=== PATIENT | female | born 1935 | race Caucasian/White ===

== ENCOUNTER 2016-04-14 07:06 | Emergency (ER) | payer MEDICARE, BC ==
[2016-04-14] MEDS ORDERED: HYDROCODONE/ACETAMINOPHEN 5-325 MG 6 TAB/DSPK PO PRN (07:36)
--- NOTE | 2016-04-14 07:37 | ER Document Report ---
ED Neck/Back Problem - General Mode of Arrival: Ambulatory Information source: Patient TRAVEL OUTSIDE OF THE [place] IN LAST 30 DAYS: No - HPI Patient complains to provider of: Pain, Upper back, Lower back Onset: Yesterday Associated symptoms: Other - see above - General Chief Complaint: Back Pain Stated Complaint: RIGHT SHOULDER PAIN Notes: 80 year old female with history of hypertension and osteoarthritis presents to the ED complaining of upper and lower right back pain that started yesterday and has gotten progressively worse since. Patient states that she is experiencing "severe pain" as if she has "pulled a muscle." Patient's pain does not radiate to the front. Patient's pain appears to be exacerbated with movement. Patient claims that 2 days ago she was peeling about 50 sweet potatoes and thinks that she might have strained her back secondary to this. Patient states that she is recovering from a virus, but denies any associated cough with the illness. Patient has used GasX because she thought the pain was presenting secondary to gas, but to no relief. Patient has also tried to use cold and hot pads, to no relief. (JUAN NOLASCO) - Related Data Allergies/Adverse Reactions: Sulfa (Sulfonamide Antibiotics) Allergy (Severe, Verified 07/01/14 13:03) Anaphylaxis Past Medical History - General Information source: Patient - Social History Smoking Status: Former Smoker Family History: Reviewed & Not Pertinent - Past Medical History Cardiac Medical History: Reports: Hx Coronary Artery Disease, Hx Heart Attack - 1983, Hx Hypertension - [facility] Pulmonary Medical History: Reports: Hx Bronchitis Musculoskeltal Medical History: Reports Hx Arthritis Past Surgical History: Reports: Hx Hysterectomy - Immunizations Hx Diphtheria, Pertussis, Tetanus Vaccination: No - Unsure Hx Pneumococcal Vaccination: 03/18/08 Review of Systems - Review of Systems Constitutional: See HPI, Recent illness - viral infection with no cough EENT: No symptoms reported Cardiovascular: No symptoms reported Respiratory: No symptoms reported Gastrointestinal: No symptoms reported Genitourinary: No symptoms reported Female Genitourinary: No symptoms reported Musculoskeletal: See HPI, Back pain - upper and lower right back pain Skin: No symptoms reported Hematologic/Lymphatic: No symptoms reported Neurological/Psychological: No symptoms reported -: Yes All other systems reviewed and negative Physical Exam - General General appearance: Alert In distress: None - HEENT Head: Normocephalic, Atraumatic Eyes: Normal Extraocular movements intact: Yes Pupils: PERRL - Respiratory Respiratory status: No respiratory distress - Cardiovascular Rhythm: Regular - Abdominal Inspection: Normal - Back Back: Tender - Tender to palpate the right inferior scapula, right posterior lateral ribs, and muscles of the right flank. No skin blisters or sensitivity. Area of tenderness covers 3-4 dermatomes., Other - Lidocaine patches present on the right back.. No: Normal - Extremities General upper extremity: Normal inspection, Normal ROM General lower extremity: Normal inspection, Normal ROM - Neurological Neuro grossly intact: Yes - Psychological Associated symptoms: Normal affect, Normal mood - Skin Skin Temperature: Warm Skin Moisture: Dry Skin Color: Normal Discharge - Discharge Clinical Impression: Mid back pain on right side, Muscle strain Additional Instructions: Overuse Syndrome: Overuse syndrome or repetitive-motion syndrome is inflammation caused by repeated activity. Many daily activities cause minor, microscopic injury to muscles, tendons, and ligaments. With adequate rest, the tissues repair themselves. But sometimes a repetitive movement or new activity is too much for the tissue to tolerate, and inflammation results. Examples of overuse syndrome are tendonitis, bursitis, muscle inflammation, and joint capsulitis. Rest. Stop or decrease the activity that created the problem. You may need a sling or splint. For the first couple of days after symptoms begin, ice packs can be helpful. When the symptoms start improving, you can switch to hot packs followed by stretching and motion of the painful area. Antiinflammatory medicine such as ibuprofen can help. Call the doctor or return if there is fever, increasing pain, spreading redness, numbness, weakness, or other significant change. //////////////////////////////////////////////////////////////////////////////// //////////////////////////////////////////////////////////////////////////////// ////////////// You've probably suffered an overuse strain of your right scapular, rib and flank muscles when you peeled all those potatoes. Take the pain medication as prescribed. Rest, limit using her right arm. Follow-up with your doctor Saturday if not improving. Return immediately if you notice any blisters developing on the skin over the painful area, as this may mean this is early shingles. RETURN TO THE EMERGENCY ROOM IF ANY NEW OR WORSENING SYMPTOMS. Prescriptions: Hydrocodone/Acetaminophen [Hydrocodon-Acetaminophen 5-325] 1 each PO Q4 PRN #15 tablet PRN Reason: For Pain Referrals: STEVE DE LA PAZ MD [EMERITUS] - Follow up as needed Scribe Attestation: 04/14/16 07:43 I personally performed the services described in the documentation, reviewed and edited the documentation which was dictated to the scribe in my presence, and it accurately records my words and actions. (CARLA NORTON) Scribe Documentation - Scribe Written by Gudelia:: Gudelia Carreon, 04/14/2016 07:56 acting as scribe for :: Lisa
[2016-04-14 07:53] VITALS: BP 157/74
== END 2016-04-14 07:55 | disposition home or self-care (01) ==
LOC: ER 07:06
DX: T14.8 Other injury of unspecified body region (principal); X58.XXXA Exposure to other specified factors, initial encounter; M54.89 Other dorsalgia; M54.5 Low back pain; Z87.892 Personal history of anaphylaxis; Z88.2 Allergy status to sulfonamides; I10 Essential (primary) hypertension; Z87.891 Personal history of nicotine dependence; I25.10 Atherosclerotic heart disease of native coronary artery without angina pectoris; I25.2 Old myocardial infarction
CPT/HCPCS: 99283; A9270

== ENCOUNTER → 2016-08-16 | Outpatient (CLI) | payer MEDICARE, BC ==
[2016-08-16 16:29] LABS: APPEARANCE,URINE SLIGHTLY-CLOUDY; BILIRUBIN,URINE NEGATIVE (NEGATIVE); GLUCOSE, URINE NEGATIVE (NEGATIVE); KETONES,URINE NEGATIVE (NEGATIVE); LEUKOCYTE ESTERASE,URINE MODERATE (NEGATIVE); NITRITE,URINE NEGATIVE (NEGATIVE); PROTEIN,URINE NEGATIVE (NEGATIVE); URINE SPECIFIC GRAVITY 1.027; UROBILINOGEN,URINE NEGATIVE mg/dL (<2.0)
[2016-08-16 16:33] LABS: ABSOLUTE BASOPHILS # (AUTO) 0.1 10^3/uL (0.0-0.2); ABSOLUTE EOSINOPHILS # (AUTO) 0.1 10^3/uL (0.0-0.6); ABSOLUTE LYMPHOCYTES (AUTO) 4.1 10^3/uL (0.5-4.7); ABSOLUTE MONOCYTES (AUTO) 0.9 10^3/uL (0.1-1.4); ABSOLUTE NEUT (AUTO) 5.2 10^3/uL (1.7-8.2); BASOPHILS % (AUTO) 0.6 % (0-2); EOSINOPHILS % (AUTO) 0.6 % (0-6); HEMATOCRIT 38.4 % (36.0-47.0); HEMOGLOBIN 12.6 g/dL (12.0-15.5); HGB HCT DIFFERENCE -0.6; LYMPHOCYTES % (AUTO) 39.9 % (13-45); MEAN CORPUSCULAR HEMOGLOBIN 31.8 pg (27.0-33.4); MEAN CORPUSCULAR VOLUME 97 fl (80-97); MONOCYTES % (AUTO) 8.5 % (3-13); RED BLOOD COUNT 3.97 10^6/uL (3.72-5.28); RED CELL DISTRIBUTION WIDTH 12.5 % (11.5-14.0); SEGMENTED NEUTROPHILS % (AUTO) 50.4 % (42-78); WHITE BLOOD COUNT 10.3 10^3/uL (4.0-10.5)
== END ==
LOC: OD 15:37
PROVIDERS: ATTEND Specialist
DX: R10.9 Unspecified abdominal pain (principal); K57.30 Diverticulosis of large intestine without perforation or abscess without bleeding
CPT/HCPCS: 36415; 81001; 85025

== ENCOUNTER → 2016-11-12 | Outpatient (CLI) | payer MEDICARE, BC ==
[2016-11-12 07:51] LABS: ABSOLUTE BASOPHILS # (AUTO) 0.1 10^3/uL (0.0-0.2); ABSOLUTE EOSINOPHILS # (AUTO) 0.1 10^3/uL (0.0-0.6); ABSOLUTE LYMPHOCYTES (AUTO) 4.8 10^3/uL (0.5-4.7); ABSOLUTE MONOCYTES (AUTO) 0.8 10^3/uL (0.1-1.4); ABSOLUTE NEUT (AUTO) 5.5 10^3/uL (1.7-8.2); BASOPHILS % (AUTO) 0.8 % (0-2); EOSINOPHILS % (AUTO) 1.1 % (0-6); HEMATOCRIT 39.3 % (36.0-47.0); HEMOGLOBIN 13.6 g/dL (12.0-15.5); HGB HCT DIFFERENCE 1.5; LYMPHOCYTES % (AUTO) 42.7 % (13-45); MEAN CORPUSCULAR HEMOGLOBIN 32.6 pg (27.0-33.4); MEAN CORPUSCULAR HGB CONC 34.5 g/dL (32.0-36.0); MEAN CORPUSCULAR VOLUME 95 fl (80-97); MONOCYTES % (AUTO) 7.2 % (3-13); RED BLOOD COUNT 4.16 10^6/uL (3.72-5.28); RED CELL DISTRIBUTION WIDTH 12.1 % (11.5-14.0); SEGMENTED NEUTROPHILS % (AUTO) 48.2 % (42-78); WHITE BLOOD COUNT 11.4 10^3/uL (4.0-10.5)
[2016-11-12 08:06] LABS: ALANINE AMINOTRANSFERASE 53 U/L (9-52); ALBUMIN 4.6 g/dL (3.5-5.0); ALKALINE PHOSPHATASE 122 U/L (38-126); ANION GAP 13 (5-19); ASPARTATE AMINO TRANSFERASE 50 U/L (14-36); BILIRUBIN,DIRECT 0.5 mg/dL (0.0-0.4); BILIRUBIN,TOTAL 0.6 mg/dL (0.2-1.3); BLOOD UREA NITROGEN 24 mg/dL (7-20); CARBON DIOXIDE 28 mmol/L (22-30); CHLORIDE 98 mmol/L (98-107); CHOLESTEROL 177.93 mg/dL (0-200); CREATININE RESULT 1.12 mg/dL (0.52-1.25); Direct HDL 47 mg/dL (>40); GLUCOSE 117 mg/dL (75-110); POTASSIUM 4.7 mmol/L (3.6-5.0); SODIUM 138.7 mmol/L (137-145); TOTAL PROTEIN 7.7 g/dL (6.3-8.2); TRIGLYCERIDES 128 mg/dL (<150)
[2016-11-12 08:17] LABS: DIRECT LDL 97 mg/dL (<100)
[2016-11-12 08:36] LABS: THYROID STIMULATING HORMONE 7.78 uIU/mL (0.47-4.68)
== END ==
LOC: LAB 07:17
PROVIDERS: ATTEND Internal Medicine
DX: I10 Essential (primary) hypertension (principal); Z79.899 Other long term (current) drug therapy; E78.00 Pure hypercholesterolemia, unspecified; E03.9 Hypothyroidism, unspecified
CPT/HCPCS: 36415; 80053; 80061; 84439; 84443; 85025

== ENCOUNTER 2016-12-03 21:20 | Emergency (ER) | payer MEDICARE, BC ==
[2016-12-03] MEDS ORDERED: ASPIRIN 81 MG TABLET, CHEWABLE PO ONE (22:40)
[2016-12-03] MEDS ORDERED: ONDANSETRON 4 MG TAB.RAPDIS PO ONE (22:54)
[2016-12-03] MEDS ORDERED: OXYCODONE-ACETAMINOPHEN 5-325 MG TABLET PO ONE (22:54)
--- NOTE | 2016-12-03 22:58 | ER Document Report ---
ED Medical Screen (RME) - General Chief Complaint: Neck and Upper Back Pain Stated Complaint: UPPER BACK PAIN Time Seen by Provider: 12/03/16 22:46 Notes: 81-year-old female, chief complaint of pain in her mid to upper back radiating up towards her neck, she states she has had this several times before, worse with movement, pain is sharp, symptoms started yesterday but returned today and she could not get them under control today. She states she believes this is muscular. She denies falling, denies any obvious injuries. She denies shortness of breath, chest pain, dizziness. She does have a history of [place] but does not take a blood thinner. She also has a history of hypertension. TRAVEL OUTSIDE OF THE [place] IN LAST 30 DAYS: No - Related Data Allergies/Adverse Reactions: Sulfa (Sulfonamide Antibiotics) Allergy (Severe, Verified 07/01/14 13:03) Anaphylaxis Past Medical History - Past Medical History Cardiac Medical History: Reports: Hx Coronary Artery Disease, Hx Heart Attack - 1983, Hx Hypertension - [facility] Pulmonary Medical History: Reports: Hx Bronchitis Denies: Hx Asthma, Hx COPD, Hx Pneumonia Neurological Medical History: Denies: Hx Cerebrovascular Accident, Hx Seizures Renal/ Medical History: Denies: Hx Peritoneal Dialysis GI Medical History: Denies: Hx Hepatitis, Hx Hiatal Hernia, Hx Ulcer Musculoskeltal Medical History: Reports Hx Arthritis Infectious Medical History: Denies: Hx Hepatitis Past Surgical History: Reports: Hx Hysterectomy. Denies: Hx Mastectomy, Hx Open Heart Surgery, Hx Pacemaker - Immunizations Hx Diphtheria, Pertussis, Tetanus Vaccination: No - Unsure Physical Exam - Vital signs Vitals: Temp Pulse Resp BP Pulse Ox 98.0 F 67 18 191/61 H 96 12/03/16 21:53 12/03/16 21:53 12/03/16 21:53 12/03/16 21:53 12/03/16 21:53 - Back Back: Tender - Patient with significant tenderness mainly along the right paraspinal muscles of the thoracic region, she has a couple of patches in the lower thoracic region, full range of motion of all extremities, normal distal neurovascular exam Course - Re-evaluation Re-evalutation: Patient intermittently does appear to be in a lot of pain, it is worse with movement, and it does appear to be muscular on palpation of the mid to upper back, however because of patient's age, risk factors, workup being performed. Because of the onset of yesterday, intermittent symptoms, and reproducible pain on back exam it seems less likely that this is an acute dissection. Patient asking for something for pain and agrees to workup at this time. - Vital Signs Vital signs: Temp Pulse Resp BP Pulse Ox 98.0 F 67 18 191/61 H 96 12/03/16 21:53 12/03/16 21:53 12/03/16 21:53 12/03/16 21:53 12/03/16 21:53
[2016-12-03 23:28] LABS: ABSOLUTE BASOPHILS # (AUTO) 0.2 10^3/uL (0.0-0.2); ABSOLUTE EOSINOPHILS # (AUTO) 0.2 10^3/uL (0.0-0.6); ABSOLUTE LYMPHOCYTES (AUTO) 4.7 10^3/uL (0.5-4.7); ABSOLUTE NEUT (AUTO) 5.6 10^3/uL (1.7-8.2); BASOPHILS % (AUTO) 1.4 % (0-2); EOSINOPHILS % (AUTO) 1.6 % (0-6); HEMATOCRIT 37.7 % (36.0-47.0); HGB HCT DIFFERENCE 1.3; LYMPHOCYTES % (AUTO) 40.5 % (13-45); MEAN CORPUSCULAR HEMOGLOBIN 32.4 pg (27.0-33.4); MEAN CORPUSCULAR HGB CONC 34.5 g/dL (32.0-36.0); MEAN CORPUSCULAR VOLUME 94 fl (80-97); MONOCYTES % (AUTO) 8.3 % (3-13); RED CELL DISTRIBUTION WIDTH 12.6 % (11.5-14.0); SEGMENTED NEUTROPHILS % (AUTO) 48.2 % (42-78); WHITE BLOOD COUNT 11.7 10^3/uL (4.0-10.5)
[2016-12-03 23:32] LABS: ALANINE AMINOTRANSFERASE 56 U/L (9-52); ALBUMIN 4.5 g/dL (3.5-5.0); ALKALINE PHOSPHATASE 133 U/L (38-126); ANION GAP 13 (5-19); ASPARTATE AMINO TRANSFERASE 62 U/L (14-36); BILIRUBIN,DIRECT 0.4 mg/dL (0.0-0.4); BILIRUBIN,TOTAL 0.4 mg/dL (0.2-1.3); BLOOD UREA NITROGEN 21 mg/dL (7-20); CALCIUM 9.8 mg/dL (8.4-10.2); CARBON DIOXIDE 25 mmol/L (22-30); CHLORIDE 99 mmol/L (98-107); CREATINE KINASE 80 U/L (30-135); CREATININE RESULT 1.19 mg/dL (0.52-1.25); GLUCOSE 113 mg/dL (75-110); POTASSIUM 4.1 mmol/L (3.6-5.0); SODIUM 137.4 mmol/L (137-145); TOTAL PROTEIN 7.8 g/dL (6.3-8.2)
--- NOTE | 2016-12-03 23:32 | RADIOLOGY REPORT (SQ) ---
EXAM DESCRIPTION: CHEST SINGLE VIEW COMPLETED DATE/TIME: 12/03/2016 11:18 pm REASON FOR STUDY: severe mid back pain COMPARISON: None. EXAM PARAMETERS: NUMBER OF VIEWS: One view. TECHNIQUE: Single frontal radiographic view of the chest acquired. RADIATION DOSE: NA LIMITATIONS: None. FINDINGS: LUNGS AND PLEURA: No opacities, masses or pneumothorax. No pleural effusion. MEDIASTINUM AND HILAR STRUCTURES: No masses. Contour normal. HEART AND VASCULAR STRUCTURES: Heart normal in size. Normal vasculature. BONES: No acute findings. HARDWARE: None in the chest. OTHER: Some elevation of the right hemidiaphragm is seen. IMPRESSION: NO ACUTE RADIOGRAPHIC FINDING IN THE CHEST. TECHNICAL DOCUMENTATION: JOB ID: [id number]
[2016-12-03 23:44] LABS: CREATINE KINASE MB 1.24 ng/mL (<4.55)
[2016-12-03 23:48] LABS: TROPONIN I < 0.012 ng/mL
[2016-12-04] MEDS ORDERED: OXYCODONE-ACETAMINOPHEN 5-325 MG TABLET PO ONE (00:10)
[2016-12-04] MEDS ORDERED: AMLODIPINE BESYLATE 5 MG TABLET PO ONE (00:36)
--- NOTE | 2016-12-04 02:30 | RADIOLOGY REPORT (SQ) ---
EXAM DESCRIPTION: CTA ABDOMEN COMPLETED DATE/TIME: 12/04/2016 1:56 am REASON FOR STUDY: back pain and hypertension. eval aorta for disection or aneurysm COMPARISON: None. TECHNIQUE: CT scan of the abdominal aorta extending to the iliac bifurcation performed with and with out intravenous contrast using helical scanning technique with dynamic intravenous contrast injection . Images reviewed with lung, soft tissue, and bone windows. Reconstructed coronal and sagittal MPR im ages reviewed. All images stored on PACS. Advanced 3D imaging as volume rendering, MIPS, SSD performed? yes All CT scanners at this facility use dose modulation, iterative reconstruction, and/or weight based d osing when appropriate to reduce radiation dose to as low as reasonably achievable (ALARA). [facility]: Dose Right [facility]: CareDose [facility]: Dose Right [facility]: Teradose 4D [facility]: [employer] CONTRAST TYPE AND DOSE: contrast/concentration: Isovue 370.00 mg/ml; Total Contrast Delivered: 100.0 ml; Total Saline Delivered: 45.0 ml RENAL FUNCTION: Creatinine 1.2 LIMITATIONS: None. FINDINGS: NON-CONTRASTED IMAGING: No significant renal or bladder calcifications. No other significa nt organ calcifications. POST-CONTRAST IMAGING: AORTA AND VESSELS: No aneurysm. No dissection. Renal arteries, SMA, celiac without stenosis. LUNG BASES: No significant findings. No nodules or infiltrates. LIVER: Normal size. No masses or dilated ducts. SPLEEN: Normal size. No focal lesions. PANCREAS: No masses. No significant calcifications. No adjacent inflammation or peripancreatic fluid collections. Pancreatic duct not dilated. GALLBLADDER: Surgically absent. ADRENAL GLANDS: No significant masses or asymmetry. RIGHT KIDNEY AND URETER: Severe atrophy. LEFT KIDNEY AND URETER: Severe atrophy. RETROPERITONEUM: No retroperitoneal adenopathy, hemorrhage or masses. BOWEL AND PERITONEAL CAVITY: No masses or inflammatory changes. No free fluid or peritoneal masses. Small ends extensive diverticulosis. APPENDIX: Normal. ABDOMINAL WALL: No masses. No hernias. BONY STRUCTURES: Moderate L5-S1 vacuum disc desiccation. 3-D IMAGING: Confirms the above findings. OTHER: No other significant finding. IMPRESSION: NO ABDOMINAL AORTIC ANEURYSM, DISSECTION OR SIGNIFICANT STENOSIS. NO SIGNIFICANT FINDING S IN THE ABDOMEN. TECHNICAL DOCUMENTATION: JOB ID: [id number] Quality ID # [id number]: Final reports with documentation of one or more dose reduction techniques (e.g., Au tomated exposure control, adjustment of the mA and/or kV according to patient size, use of iterative reconstruction technique) 2010 [employer]- All Rights Reserved
--- NOTE | 2016-12-04 02:33 | RADIOLOGY REPORT (SQ) ---
EXAM DESCRIPTION: CTA CHEST COMPLETED DATE/TIME: 12/04/2016 1:56 am REASON FOR STUDY: back pain and hypertension. eval aorta for disection or aneurysm COMPARISON: None. TECHNIQUE: CT scan of the chest performed using helical scanning technique with dynamic intravenous contrast injection. Images reviewed with lung, soft tissue and bone windows. Reconstructed coronal and sagittal MPR images reviewed. Additional 3 dimensional post-processing performed to develop Maximal Intensity Projection images (PR P). All images stored on PACS. All CT scanners at this facility use dose modulation, iterative reconstruction, and/or weight based d osing when appropriate to reduce radiation dose to as low as reasonably achievable (ALARA). [facility]: Dose Right [facility]: CareDose [facility]: Dose Right [facility]: Teradose 4D [facility]: [email or web address] CONTRAST TYPE AND DOSE: Contrast bolus optimized for the pulmonary arteries. Not diagnostic for the aorta. RENAL FUNCTION: The creatinine 1.2 RADIATION DOSE: . LIMITATIONS: None. FINDINGS: LUNGS AND PLEURA: 0.5 cm likely benign right middle lobar pulmonary nodule. Mild smooth p leural thickening. AORTA AND GREAT VESSELS: No aneurysm. Contrast bolus not optimized for the aorta. HEART: No pericardial effusion. No significant coronary artery calcifications. PULMONARY ARTERIES: No emboli visualized in the main pulmonary arteries or the segmental branches. HILAR AND MEDIASTINAL STRUCTURES: No identified masses or abnormal nodes. HARDWARE: None in the chest. UPPER ABDOMEN: No significant findings. Limited exam. THYROID AND OTHER SOFT TISSUES: No masses. No adenopathy. BONES: No acute or significant finding. 3D MIPS: Confirm above findings. OTHER: No other significant finding. IMPRESSION: No acute cardiopulmonary findings. . NO PULMONARY EMBOLI. COMMENT: FLEISCHNER CRITERIA FOR FOLLOW-UP OF PULMONARY NODULES Incidentally detected new nodules in persons 35 or older. HIGH RISK: History of smoking or other known risk factors. <6mm single solid nodule: LOW RISK: no routine followup. HIGH RISK: optional CT 12 mo. Quality ID # [id number]: Final reports with documentation of one or more dose reduction techniques (e.g., Au tomated exposure control, adjustment of the mA and/or kV according to patient size, use of iterative reconstruction technique) TECHNICAL DOCUMENTATION: JOB ID: [id number] [employer]- All Rights Reserved
--- NOTE | 2016-12-04 02:35 | RADIOLOGY REPORT (SQ) ---
EXAM DESCRIPTION: CTA PELVIS COMPLETED DATE/TIME: 12/04/2016 1:56 am REASON FOR STUDY: back pain and hypertension. eval aorta for disection or aneurysm COMPARISON: None. TECHNIQUE: CT scan of the abdominal aorta extending to the iliac bifurcation performed with and with out intravenous contrast using helical scanning technique with dynamic intravenous contrast injection . Images reviewed with lung, soft tissue, and bone windows. Reconstructed coronal and sagittal MPR im ages reviewed. All images stored on PACS. Advanced 3D imaging as volume rendering, MIPS, SSD performed? yes All CT scanners at this facility use dose modulation, iterative reconstruction, and/or weight based d osing when appropriate to reduce radiation dose to as low as reasonably achievable (ALARA). [facility]: Dose Right [facility]: CareDose [facility]: Dose Right [facility]: Teradose 4D [facility]: [employer] CONTRAST TYPE AND DOSE: 100 cc Isovue 370 RENAL FUNCTION: Creatinine 1.2 LIMITATIONS: None. FINDINGS: NON-CONTRASTED IMAGING: No significant renal or bladder calcifications. No other significa nt organ calcifications. POST-CONTRAST IMAGING: AORTA AND VESSELS: No aneurysm. No dissection. Renal arteries, SMA, celiac without stenosis. LUNG BASES: No significant findings. No nodules or infiltrates. LIVER: Normal size. No masses or dilated ducts. SPLEEN: Normal size. No focal lesions. PANCREAS: No masses. No significant calcifications. No adjacent inflammation or peripancreatic fluid collections. Pancreatic duct not dilated. GALLBLADDER: Surgically absent. ADRENAL GLANDS: No significant masses or asymmetry. RIGHT KIDNEY AND URETER: No mass, calculi or urinary tract obstruction. LEFT KIDNEY AND URETER: No mass, calculi or urinary tract obstruction. Duplicated collecting system. RETROPERITONEUM: No retroperitoneal adenopathy, hemorrhage or masses. BOWEL AND PERITONEAL CAVITY: No masses or inflammatory changes. No free fluid or peritoneal masses. Small diverticulosis. APPENDIX: No evidence of appendicitis. ABDOMINAL WALL: No masses. No hernias. BONY STRUCTURES: No significant or acute findings. 3-D IMAGING: Confirms the above findings. OTHER: No other significant finding. IMPRESSION: No acute findings. NO ABDOMINAL AORTIC ANEURYSM, DISSECTION OR SIGNIFICANT STENOSIS. TECHNICAL DOCUMENTATION: JOB ID: [id number] Quality ID # [id number]: Final reports with documentation of one or more dose reduction techniques (e.g., Au tomated exposure control, adjustment of the mA and/or kV according to patient size, use of iterative reconstruction technique) 2010 [employer]- All Rights Reserved
--- NOTE | 2016-12-04 03:17 | ER Document Report ---
ED General - General Chief Complaint: Neck and Upper Back Pain Stated Complaint: UPPER BACK PAIN Time Seen by Provider: 12/03/16 22:46 Mode of Arrival: Ambulatory Information source: Patient Notes: This is an 81-year-old female with a history of coronary artery disease, GERD, history of elevated LFTs, presents to the emergency room with back pain and spasm. Patient denies any chest pain, shortness of breath. Patient denies any fever, chills, nausea vomiting. TRAVEL OUTSIDE OF THE [place] IN LAST 30 DAYS: No - HPI Onset: Just prior to arrival - Chest Onset/Duration: Gradual Quality of pain: No pain Severity: None Pain Level: 2 Associated symptoms: denies: Chest pain, Fever, Shortness of breath Exacerbated by: Movement Relieved by: Remaining still Similar symptoms previously: Yes Recently seen / treated by doctor: No - Related Data Allergies/Adverse Reactions: Sulfa (Sulfonamide Antibiotics) Allergy (Severe, Verified 12/04/16 01:05) Anaphylaxis Past Medical History - General Information source: Patient - Social History Smoking Status: Never Smoker Cigarette use (# per day): No Chew tobacco use (# tins/day): No Frequency of alcohol use: None Drug Abuse: None Lives with: Family Family History: Reviewed & Not Pertinent Patient has suicidal ideation: No Patient has homicidal ideation: No - Past Medical History Cardiac Medical History: Reports: Hx Coronary Artery Disease, Hx Heart Attack - x2, Hx Hypertension - [facility] Pulmonary Medical History: Reports: Hx Bronchitis Denies: Hx Asthma, Hx COPD, Hx Pneumonia Neurological Medical History: Denies: Hx Cerebrovascular Accident, Hx Seizures Renal/ Medical History: Denies: Hx Peritoneal Dialysis GI Medical History: Denies: Hx Hepatitis, Hx Hiatal Hernia, Hx Ulcer Musculoskeltal Medical History: Reports Hx Arthritis Infectious Medical History: Denies: Hx Hepatitis Past Surgical History: Reports: Hx Appendectomy, Hx Cholecystectomy, Hx Hysterectomy, Hx Orthopedic Surgery - Back, Hx Tonsillectomy. Denies: Hx Mastectomy, Hx Open Heart Surgery, Hx Pacemaker - Immunizations Hx Diphtheria, Pertussis, Tetanus Vaccination: Yes Hx Pneumococcal Vaccination: 03/18/08 Review of Systems - Review of Systems Constitutional: denies: Chills, Fever EENT: No symptoms reported Cardiovascular: No symptoms reported Respiratory: No symptoms reported Gastrointestinal: No symptoms reported Genitourinary: No symptoms reported Female Genitourinary: No symptoms reported Musculoskeletal: See HPI Skin: No symptoms reported Hematologic/Lymphatic: No symptoms reported Neurological/Psychological: No symptoms reported Physical Exam - Vital signs Vitals: Temp Pulse Resp BP Pulse Ox 98.0 F 67 18 191/61 H 96 12/03/16 21:53 12/03/16 21:53 12/03/16 21:53 12/03/16 21:53 12/03/16 21:53 Notes: Physical exam: GENERAL: This is 81-year-old female, alert and oriented 3, no acute distress HEAD: Atraumatic, normocephalic. EYES: Pupils equal round and reactive to light, extraocular movements intact, sclera anicteric, conjunctiva are normal. ENT: TMs normal, nares patent, oropharynx clear without exudates. Moist mucous membranes. NECK: Normal range of motion, supple without obvious mass or JVD. LUNGS: Breath sounds clear to auscultation bilaterally and equal. No wheezes rales or rhonchi. HEART: Regular rate and rhythm without murmurs, rubs or gallops. ABDOMEN: Soft, normoactive bowel sounds. No tenderness to palpation. No guarding, no rebound. No masses appreciated. EXTREMITIES: 2+ pulses and equal in all extremities, normal range of motion, no pitting or edema. No clubbing or cyanosis. NEUROLOGICAL: Cranial nerves II through XII grossly intact. Normal speech, moving all extremities. PSYCH: Normal mood, normal affect. SKIN: Warm, Dry, normal turgor, no rashes or lesions noted. Course - Re-evaluation Re-evalutation: 12/04/16 03:35 Note: Patient's blood pressure is 138/63. Patient states she feels much better at the Percocet. She never had chest pain or shortness of breath. Her symptoms were back pain worse with movement. Given her elevated blood pressure on arrival, we did do a CT of the aorta which showed no evidence of aneurysm or dissection. I have had a long conversation with the patient. The plan will be for her to go home with a short course of pain medicines. 12/04/16 03:37 Note: Patient does have a history of elevated LFTs. They are mildly elevated to 9 which is consistent with what she is told me. She has had no abdominal tenderness or complaints. - Vital Signs Vital signs: Temp Pulse Resp BP Pulse Ox 98.0 F 67 20 143/66 H 97 12/04/16 03:55 12/03/16 21:53 12/04/16 03:55 12/04/16 03:55 12/04/16 03:55 - Laboratory Result Diagrams: 12/03/16 23:00 12/03/16 23:00 Laboratory results interpreted by me: 12/03/16 12/03/16 23:00 23:00 WBC 11.7 H BUN 21 H Est GFR ( Amer) 53 L Est GFR (Non-Af Amer) 44 L Glucose 113 H AST 62 H ALT 56 H Alkaline Phosphatase 133 H - Diagnostic Test Radiology reviewed: Image reviewed, Reports reviewed - CT of the chest abdomen and pelvis showed no aortic dissection or aneurysm. - EKG Interpretation by Me Rate: Normal Rhythm: NSR - Ventricular rate 57, no acute ST-T wave changes Discharge - Discharge Clinical Impression: acute Back pain Condition: Stable Disposition: HOME, SELF-CARE Additional Instructions: Thank you for choosing [facility] for your care. The examination and treatment you have received in the Emergency Department today has been rendered on an emergency basis only and is not intended to be a substitute for complete medical care. You should contact your follow-up physician as it is important that he or she examine you for any new or remaining problems. If given a copy of any lab tests or radiology reports, please bring them with you when you see your physician. If your problem worsens or new symptoms appear and you are unable to arrange prompt follow-up care, return to the Emergency Department. Specific signs to look out for: Worsening pain, chest pain, shortness of breath Any other instructions: Take the pain medicine as needed. Follow-up with Dr. Daniels: Bring a copy of today's lab work as well as CT reports with you. The pain medicine you're taking prescribed as a narcotic. There are several important things you should know about this medicine: 1. This medicine contains Tylenol: It is important that you do not take Tylenol (or acetaminophen) while on this medicine. Tylenol is metabolized by the liver and taking too much Tylenol (acetaminophen) can lay to liver damage and even liver failure. 2. Taking narcotics for too long can lead to physical and mental dependence. Take this medicine only if really needed and in the lowest quantity to achieve pain relief. 3. Do not drink alcohol while on this medicine. Alcohol interacts with narcotics and the combination can be dangerous. 4. Do not drive or operate machinery while on this medicine. 5. Narcotics do cause constipation, so drink plenty of fluids and daily stool softeners. Prescriptions: Oxycodone HCl/Acetaminophen [Percocet 5-325 mg Tablet] 1 - 2 tab PO ASDIR PRN # 25 tablet PRN Reason: Referrals: STEVE DE LA PAZ MD [Primary Care Provider] - Follow up as needed
[2016-12-04 04:00] VITALS: BP 143/66
--- NOTE | 2016-12-04 07:51 | EKG REPORT ---
SEVERITY:- ABNORMAL ECG - SINUS RHYTHM ABNRM R PROG, CONSIDER ASMI OR LEAD PLACEMENT : Confirmed by: John Angulo MD 04-Dec-2016 07:50:49
== END 2016-12-04 04:00 | disposition home or self-care (01) ==
LOC: ER 21:20
DX: M54.89 Other dorsalgia (principal); R25.2 Cramp and spasm; R79.89 Other specified abnormal findings of blood chemistry; I10 Essential (primary) hypertension; I25.10 Atherosclerotic heart disease of native coronary artery without angina pectoris; I25.2 Old myocardial infarction; Z87.892 Personal history of anaphylaxis; Z88.2 Allergy status to sulfonamides
CPT/HCPCS: 93005; 99284; 36415; 82553; 82550; 85025; 80053; 84484; 71010; 71275; 74175; 72191; 93010; A9270 ×3; S0119

== ENCOUNTER → 2017-05-02 | Outpatient (CLI) | payer MEDICARE, BC ==
[2017-05-02 13:29] LABS: HEMATOCRIT 40.1 % (36.0-47.0); HEMOGLOBIN 13.8 g/dL (12.0-15.5); MEAN CORPUSCULAR HEMOGLOBIN 32.2 pg (27.0-33.4); MEAN CORPUSCULAR HGB CONC 34.5 g/dL (32.0-36.0); MEAN CORPUSCULAR VOLUME 93 fl (80-97); PLATELET COUNT 278 10^3/uL (150-450); RED BLOOD COUNT 4.29 10^6/uL (3.72-5.28); RED CELL DISTRIBUTION WIDTH 12.9 % (11.5-14.0); WHITE BLOOD COUNT 9.1 10^3/uL (4.0-10.5)
[2017-05-02 14:05] LABS: FREE T4 (FREE THYROXINE) 0.76 ng/dL (0.78-2.19)
[2017-05-02 14:19] LABS: THYROID STIMULATING HORMONE 0.08 uIU/mL (0.47-4.68)
== END ==
LOC: OD 12:34
PROVIDERS: ATTEND Internal Medicine
DX: E03.9 Hypothyroidism, unspecified (principal); R73.9 Hyperglycemia, unspecified; R21 Rash and other nonspecific skin eruption
CPT/HCPCS: 36415; 82947; 84439; 84443; 85027

== ENCOUNTER → 2017-12-09 | Outpatient (CLI) | payer MEDICARE, BC ==
[2017-12-09 10:34] LABS: ABSOLUTE EOSINOPHILS # (AUTO) 0.2 10^3/uL (0.0-0.6); ABSOLUTE LYMPHOCYTES (AUTO) 3.4 10^3/uL (0.5-4.7); ABSOLUTE MONOCYTES (AUTO) 0.6 10^3/uL (0.1-1.4); ABSOLUTE NEUT (AUTO) 3.3 10^3/uL (1.7-8.2); BASOPHILS % (AUTO) 0.6 % (0-2); EOSINOPHILS % (AUTO) 2.2 % (0-6); HEMATOCRIT 40.5 % (36.0-47.0); HEMOGLOBIN 13.9 g/dL (12.0-15.5); LYMPHOCYTES % (AUTO) 44.8 % (13-45); MEAN CORPUSCULAR HGB CONC 34.4 g/dL (32.0-36.0); MEAN CORPUSCULAR VOLUME 93 fl (80-97); MONOCYTES % (AUTO) 8.6 % (3-13); PLATELET COUNT 237 10^3/uL (150-450); RED BLOOD COUNT 4.36 10^6/uL (3.72-5.28); RED CELL DISTRIBUTION WIDTH 12.6 % (11.5-14.0); SEGMENTED NEUTROPHILS % (AUTO) 43.8 % (42-78); TOTAL CELLS COUNTED % (AUTO) 100 %; WHITE BLOOD COUNT 7.5 10^3/uL (4.0-10.5)
[2017-12-09 10:52] LABS: ALANINE AMINOTRANSFERASE 36 U/L (9-52); ALKALINE PHOSPHATASE 111 U/L (38-126); ANION GAP 9 (5-19); ASPARTATE AMINO TRANSFERASE 47 U/L (14-36); BILIRUBIN,DIRECT 0.6 mg/dL (0.0-0.4); BILIRUBIN,TOTAL 0.9 mg/dL (0.2-1.3); BLOOD UREA NITROGEN 18 mg/dL (7-20); CALCIUM 9.6 mg/dL (8.4-10.2); CARBON DIOXIDE 29 mmol/L (22-30); CHLORIDE 102 mmol/L (98-107); CHOLESTEROL 150.49 mg/dL (0-200); GLUCOSE 109 mg/dL (75-110); POTASSIUM 4.6 mmol/L (3.6-5.0); SODIUM 139.8 mmol/L (137-145); TOTAL PROTEIN 7.2 g/dL (6.3-8.2); TRIGLYCERIDES 167 mg/dL (<150)
[2017-12-09 11:03] LABS: DIRECT LDL 79 mg/dL (<100)
[2017-12-09 11:05] LABS: FREE T4 (FREE THYROXINE) 0.56 ng/dL (0.78-2.19)
[2017-12-09 11:06] LABS: VLDL CHOLESTEROL 33.4 mg/dL (10-31)
[2017-12-09 11:19] LABS: THYROID STIMULATING HORMONE 2.83 uIU/mL (0.47-4.68)
== END ==
LOC: OD 09:30
PROVIDERS: ATTEND Internal Medicine
DX: E03.9 Hypothyroidism, unspecified (principal); I10 Essential (primary) hypertension; E78.5 Hyperlipidemia, unspecified; Z79.899 Other long term (current) drug therapy
CPT/HCPCS: 36415; 80053; 80061; 84439; 84443; 85025

== ENCOUNTER → 2018-12-11 | Outpatient (CLI) | payer MEDICARE, BC ==
[2018-12-11 09:00] LABS: ABSOLUTE EOSINOPHILS # (AUTO) 0.2 10^3/uL (0.0-0.6); ABSOLUTE LYMPHOCYTES (AUTO) 4.3 10^3/uL (0.5-4.7); ABSOLUTE MONOCYTES (AUTO) 0.7 10^3/uL (0.1-1.4); ABSOLUTE NEUT (AUTO) 3.4 10^3/uL (1.7-8.2); BASOPHILS % (AUTO) 0.5 % (0-2); EOSINOPHILS % (AUTO) 2.7 % (0-6); HEMATOCRIT 41.5 % (36.0-47.0); HEMOGLOBIN 14.1 g/dL (12.0-15.5); LYMPHOCYTES % (AUTO) 49.6 % (13-45); MEAN CORPUSCULAR HEMOGLOBIN 31.2 pg (27.0-33.4); MEAN CORPUSCULAR VOLUME 92 fl (80-97); MONOCYTES % (AUTO) 8.4 % (3-13); PLATELET COUNT 259 10^3/uL (150-450); RED BLOOD COUNT 4.52 10^6/uL (3.72-5.28); RED CELL DISTRIBUTION WIDTH 12.8 % (11.5-14.0); SEGMENTED NEUTROPHILS % (AUTO) 38.8 % (42-78); TOTAL CELLS COUNTED % (AUTO) 100 %; WHITE BLOOD COUNT 8.7 10^3/uL (4.0-10.5)
[2018-12-11 09:31] LABS: ALBUMIN 4.4 g/dL (3.5-5.0); ALKALINE PHOSPHATASE 127 U/L (38-126); ANION GAP 11 (5-19); ASPARTATE AMINO TRANSFERASE 48 U/L (14-36); BILIRUBIN,DIRECT 0.2 mg/dL (0.0-0.4); BILIRUBIN,TOTAL 0.5 mg/dL (0.2-1.3); BLOOD UREA NITROGEN 26 mg/dL (7-20); CALCIUM 9.8 mg/dL (8.4-10.2); CARBON DIOXIDE 29 mmol/L (22-30); CHLORIDE 100 mmol/L (98-107); CHOLESTEROL 176.86 mg/dL (0-200); GLUCOSE 109 mg/dL (75-110); POTASSIUM 4.3 mmol/L (3.6-5.0); TOTAL PROTEIN 7.6 g/dL (6.3-8.2); TRIGLYCERIDES 154 mg/dL (<150)
[2018-12-11 09:42] LABS: DIRECT LDL 121 mg/dL (<100)
[2018-12-11 09:49] LABS: VLDL CHOLESTEROL 30.8 mg/dL (10-31)
== END ==
LOC: OD 07:52
PROVIDERS: ATTEND Internal Medicine
DX: E03.9 Hypothyroidism, unspecified (principal); I10 Essential (primary) hypertension; Z79.899 Other long term (current) drug therapy
CPT/HCPCS: 36415; 80053; 80061; 84436; 84443; 85025

== ENCOUNTER 2019-11-13 02:30 | Emergency (ER) | payer MEDICARE, BC ==
[2019-11-13] MEDS ORDERED: MORPHINE SULFATE 10 MG/ML INJ IV ONE (02:50)
[2019-11-13] MEDS ORDERED: ONDANSETRON HCL INJ/PF 4 MG/2 ML SDV IV ONE (02:50)
--- NOTE | 2019-11-13 02:52 | ER Document Report ---
ED Cardiac - General Chief Complaint: Chest Pain Stated Complaint: CHEST PAIN,LEFT ARM PAIN,SHOULDER PAIN Time Seen by Provider: 11/13/19 02:36 Primary Care Provider: STEVE DUFFY MD [Primary Care Provider] - Follow up as needed Notes: Patient is an 83-year-old female that comes emergency department for chief complaint of chest pain. She states that for 2 weeks or so she has had pain in both her shoulders but today she started feeling discomfort down in her chest that radiated all the way down to the bottom or her chest. Patient was given 3 nitroglycerin sublingual and 324 mg of aspirin by EMS, patient states this helped her symptoms but did not resolve her symptoms. Patient was noted to be very hypertensive in the 200s. She states that she also has shortness of breath that she did not used to have over the past few weeks, she states just a sending and descending stairs makes her feel very out of breath. She denies dizziness but she does report some nausea. She denies vomiting, hortencia pain, fever, cough, injury. She lives at home by herself. She has a history of hypertension, hypothyroidism, and she states that she had a cath for a "coronary spasm" back in the 80s and then a stress test several years ago which was not concerning. She denies history of CHF and states she takes Lasix occasionally for swelling in her feet. She follows with Dr. uDffy but no other providers. She is a former smoker. TRAVEL OUTSIDE OF THE [place] IN LAST 30 DAYS: No - Related Data Allergies/Adverse Reactions: Sulfa (Sulfonamide Antibiotics) Allergy (Severe, Verified 12/04/16 01:05) Anaphylaxis Past Medical History - Social History Family History: Reviewed & Not Pertinent - Past Medical History Cardiac Medical History: Reports: Hx Coronary Artery Disease, Hx Heart Attack - x2, Hx Hypertension - [facility] Pulmonary Medical History: Reports: Hx Bronchitis Denies: Hx Asthma, Hx COPD, Hx Pneumonia Neurological Medical History: Denies: Hx Cerebrovascular Accident, Hx Seizures Endocrine Medical History: Reports: Hx Hypothyroidism Renal/ Medical History: Denies: Hx Peritoneal Dialysis GI Medical History: Denies: Hx Hepatitis, Hx Hiatal Hernia, Hx Ulcer Musculoskeletal Medical History: Reports Hx Arthritis Infectious Medical History: Denies: Hx Hepatitis Past Surgical History: Reports: Hx Appendectomy, Hx Cholecystectomy, Hx Hysterectomy, Hx Orthopedic Surgery - Back, Hx Tonsillectomy. Denies: Hx Mastectomy, Hx Open Heart Surgery, Hx Pacemaker - Immunizations Hx Diphtheria, Pertussis, Tetanus Vaccination: Yes Hx Pneumococcal Vaccination: 03/18/08 Discharge - Discharge Referrals: STEVE DUFFY MD [Primary Care Provider] - Follow up as needed
[2019-11-13] MEDS ORDERED: CLOPIDOGREL BISULFATE 75 MG TABLET ONE (03:00)
[2019-11-13] MEDS ORDERED: TENECTEPLASE INJ 50 MG KIT IV ONE ×2 (03:00→03:45)
[2019-11-13] MEDS ORDERED: NITROGLYCERIN/D5W 50 MG/250 ML RTUINJ IV PRN (03:02)
[2019-11-13 03:10] LABS: ABSOLUTE EOSINOPHILS # (AUTO) 0.2 10^3/uL (0.0-0.6); ABSOLUTE LYMPHOCYTES (AUTO) 4.2 10^3/uL (0.5-4.7); ABSOLUTE MONOCYTES (AUTO) 0.9 10^3/uL (0.1-1.4); ABSOLUTE NEUT (AUTO) 3.3 10^3/uL (1.7-8.2); BASOPHILS % (AUTO) 0.3 % (0-2); EOSINOPHILS % (AUTO) 2.1 % (0-6); HEMATOCRIT 39.9 % (36.0-47.0); HEMOGLOBIN 13.7 g/dL (12.0-15.5); MEAN CORPUSCULAR HEMOGLOBIN 32.6 pg (27.0-33.4); MEAN CORPUSCULAR HGB CONC 34.4 g/dL (32.0-36.0); MEAN CORPUSCULAR VOLUME 95 fl (80-97); PLATELET COUNT 238 10^3/uL (150-450); RED BLOOD COUNT 4.21 10^6/uL (3.72-5.28); RED CELL DISTRIBUTION WIDTH 12.7 % (11.5-14.0); SEGMENTED NEUTROPHILS % (AUTO) 38.6 % (42-78); TOTAL CELLS COUNTED % (AUTO) 100 %; WHITE BLOOD COUNT 8.5 10^3/uL (4.0-10.5)
--- NOTE | 2019-11-13 03:15 | ER Document Report ---
ED General - General Chief Complaint: Chest Pain Stated Complaint: CHEST PAIN,LEFT ARM PAIN,SHOULDER PAIN Time Seen by Provider: 11/13/19 02:36 Primary Care Provider: STEVE DE LA PAZ MD [Primary Care Provider] - Follow up as needed TRAVEL OUTSIDE OF THE [place] IN LAST 30 DAYS: No - HPI Notes: Patient is an 83-year-old family presents the emergency department for evaluation of chest pain. She states she has had pain across her shoulders, and her left jaw, and her left shoulder and arm, intermittently for the last 2 weeks. Today it started going into her chest. She states this worsened by exertion. It is relieved somewhat by rest, as well as the nitroglycerin she received in route. She describes some associated shortness of breath on exertion. She has had some nausea with this. States she was diaphoretic earlier tonight. She denies any near syncope. She states that at worst her pain was an 8 out of 10. She states right now it is a 1 out of 10. - Related Data Allergies/Adverse Reactions: Sulfa (Sulfonamide Antibiotics) Allergy (Severe, Verified 12/04/16 01:05) Anaphylaxis Home Medications: Lasix, omeprazole, Synthroid, Zofran, amlodipine, aspirin, levocetirizine Past Medical History - General Information source: Patient - Social History Smoking Status: Former Smoker Family History: Reviewed & Not Pertinent - Past Medical History Cardiac Medical History: Reports: Hx Heart Attack - x2, Hx Hypertension - [facility], Other - Coronary artery vasospasm, no known coronary artery disease Pulmonary Medical History: Reports: Hx Bronchitis Denies: Hx Asthma, Hx COPD, Hx Pneumonia Neurological Medical History: Denies: Hx Cerebrovascular Accident, Hx Seizures Endocrine Medical History: Reports: Hx Hypothyroidism Renal/ Medical History: Denies: Hx Peritoneal Dialysis GI Medical History: Denies: Hx Hepatitis, Hx Hiatal Hernia, Hx Ulcer Musculoskeletal Medical History: Reports Hx Arthritis Infectious Medical History: Denies: Hx Hepatitis Past Surgical History: Reports: Hx Appendectomy, Hx Cholecystectomy, Hx Hyste rectomy, Hx Orthopedic Surgery - Back, Hx Tonsillectomy. Denies: Hx Mastectomy, Hx Open Heart Surgery, Hx Pacemaker - Immunizations Hx Diphtheria, Pertussis, Tetanus Vaccination: Yes Hx Pneumococcal Vaccination: 03/18/08 Review of Systems - Review of Systems Constitutional: See HPI EENT: No symptoms reported Cardiovascular: See HPI Respiratory: See HPI Gastrointestinal: See HPI Genitourinary: No symptoms reported Musculoskeletal: No symptoms reported Skin: No symptoms reported Neurological/Psychological: No symptoms reported Physical Exam - Vital signs Vitals: Resp 19 11/13/19 02:37 - Notes Notes: Vital signs reviewed, please refer to chart. Head is normocephalic, atraumatic. Pupils equal round, reactive to light. Neck is supple without meningismus. Heart is regular rate and rhythm. Lungs are clear to auscultation bilaterally. Abdomen is soft, nontender, normoactive bowel sounds throughout. Extremities without cyanosis, clubbing. Posterior calves are nontender. Peripheral pulses are equal. Skin is warm and dry. Patient is awake, alert, neurological exam is nonfocal. Course - Re-evaluation Re-evalutation: 11/13/19 03:11 Patient presents to the emergency department for evaluation. She was placed on a environmental monitoring specialist, oxygen per nasal cannula. She was brought in by EMS was already administered nitroglycerin. Her initial EKG showed a sinus bradycardia and ST changes in the inferior leads concerning for infarction. She has reciprocal anterior changes as well. Patient received aspirin. She is placed on a nitroglycerin drip at 5 mcg a minute. Her current blood pressure is 174/82. This case was discussed briefly with Dr. Tesfaye, who recommends calling the STEMI line at [facility]. Patient is currently stable, we will continue to monitor. 11/13/19 03:[address] Dang, on-call ED physician at [facility]. We talked at [facility] about findings, and she will accept the patient as a STEMI. Decision was made at first to proceed with thrombolytic therapy. I went back into talk to the patient about this. She was on low-dose nitroglycerin drip, but her pain increased slightly. I went up on the nitroglycerin drip. She is now pain-free again, but her blood pressure is 200/78. Verbal order given to HARRISON Liao, to increase nitroglycerin drip to 30 mcg, awaiting repeat pressure. We talked at length about the indications and contraindications for TNKase, patient agrees to administration of this medication. I will administer this medication if I am able to get her blood pressure under control. She remains neurologically intact. 11/13/19 04:03 I titrated up on the nitroglycerin drip to better control this patient's blood pressure to administer TNKase. I talked at length with her about the indications and contraindications. We went up on the nitroglycerin drip, and her blood pressure was under 180/100, decision was made to order it. The patient agreed to the administration of this medication. While it was being prepared, the patient's blood pressure went up. She denied having any pain, but she was nervous. We talked at length about the fact that this is only a relative contraindication, and it was decided to administer this medication. TNKase was ordered and administered without apparent adverse reaction. I ordered Plavix and heparin, I did not order heparin bolus. Patient is currently stable, again chest pain-free. I will send the patient to [facility] for further care. 11/13/19 04:44 Patient remains completely stable. She has no chest pain at this time. Blood pressure currently in the 160s. Transport is here, she is taken to [facility] in stable condition. - Vital Signs Vital signs: Temp Pulse Resp BP Pulse Ox 98 F 17 176/77 H 94 11/13/19 04:31 11/13/19 04:31 11/13/19 04:31 11/13/19 04:36 - Laboratory Result Diagrams: 11/13/19 02:56 11/13/19 02:56 Laboratory results interpreted by me: 11/13/19 11/13/19 02:56 02:56 Lymph % (Auto) 49.0 H Seg Neutrophils % 38.6 L Est GFR (MDRD) Non-Af 51 L Glucose 116 H AST 38 H Alkaline Phosphatase 131 H - Diagnostic Test Radiology reviewed: Reports reviewed Radiology results interpreted by me: 11/13/19 03:37 Chest X-Ray 11/13/19 02:49 IMPRESSION: No evidence of active intrathoracic disease. No adverse change - EKG Interpretation by Me Additional EKG results interpreted by id: 11/13/19 03:40 Initial EKG reveals a sinus bradycardia with a rate of 55 bpm. Normal axis. First-degree AV block. ST elevation in the inferior leads with reciprocal anterolateral changes concerning for acute inferior wall RI. Repeat EKG reveals sinus rhythm, rate of [address] elevation is resolved, mild anterolateral ST depression, concerning for ischemia. Critical Care Note - Critical Care Note Total time excluding time spent on procedures (mins): 45 Discharge - Discharge Clinical Impression: STEMI (ST elevation myocardial infarction) Qualifiers: Involved coronary artery: unspecified coronary artery Qualified Code(s): I21.3 - ST elevation (STEMI) myocardial infarction of unspecified site Condition: Stable Disposition: [facility] Admitting Provider: Dr. Dang Referrals: STEVE DE LA PAZ MD [Primary Care Provider] - Follow up as needed
--- NOTE | 2019-11-13 03:19 | RADIOLOGY REPORT (SQ) ---
CLINICAL INDICATION: chest pain, dyspnea on exertion. TECHNIQUE: A single portable AP view was obtained of the chest at 0304 hours. COMPARISON: December 03, 2016. FINDINGS: The cardiomediastinal silhouette is normal. The lungs are grossly clear. No evidence of effusion or pneumothorax. Elevation right lung base, similar to prior. IMPRESSION: No evidence of active intrathoracic disease. No adverse change
[2019-11-13 03:22] LABS: INTERNATIONAL RATION (INR) 0.89; PROTHROMBIN TIME 12.3 SEC (11.4-15.4)
[2019-11-13 03:23] LABS: PARTIAL THROMBOPLASTIN TIME 28.6 SEC (23.5-35.8)
[2019-11-13 03:32] LABS: ALBUMIN 4.2 g/dL (3.5-5.0); ALKALINE PHOSPHATASE 131 U/L (38-126); ANION GAP 10 (5-19); ASPARTATE AMINO TRANSFERASE 38 U/L (14-36); BILIRUBIN,DIRECT 0.4 mg/dL (0.0-0.4); BILIRUBIN,TOTAL 0.5 mg/dL (0.2-1.3); BLOOD UREA NITROGEN 19 mg/dL (7-20); CARBON DIOXIDE 27 mmol/L (22-30); CHLORIDE 103 mmol/L (98-107); CREATINE KINASE 62 U/L (30-135); GLUCOSE 116 mg/dL (75-110); TOTAL PROTEIN 7.3 g/dL (6.3-8.2)
[2019-11-13] MEDS ORDERED: CLOPIDOGREL BISULFATE 75 MG TABLET PO ONE (03:51)
[2019-11-13] MEDS ORDERED: HEPARIN SODIUM,PORCINE/D5W 25,000 UNIT/250 ML RTUINJ IV PRN (03:52)
[2019-11-13] MEDS ORDERED: HEPARIN SODIUM,PORCINE/D5W 25,000 UNIT/250 ML RTUINJ IV ONE (04:12)
[2019-11-13 04:44] VITALS: BP 163/72
--- NOTE | 2019-11-13 11:09 | EKG REPORT ---
SEVERITY:- ABNORMAL ECG - SINUS RHYTHM ABNORMAL T, CONSIDER ISCHEMIA, LATERAL LEADS : Confirmed by: Reba Hector MD 13-Nov-2019 11:07:59
--- NOTE | 2019-11-13 11:13 | EKG REPORT ---
SEVERITY:- ABNORMAL ECG - SINUS RHYTHM INFERIOR INJURY, EARLY ACUTE INFARCT : Confirmed by: Reba Hector MD 13-Nov-2019 11:12:20
== END 2019-11-13 04:54 | disposition short-term general hospital (02) ==
LOC: ER 02:30
DX: I21.3 ST elevation (STEMI) myocardial infarction of unspecified site (principal); R07.9 Chest pain, unspecified; M79.602 Pain in left arm; M25.512 Pain in left shoulder; R06.02 Shortness of breath; R11.0 Nausea; Z88.2 Allergy status to sulfonamides; Z79.899 Other long term (current) drug therapy; Z87.891 Personal history of nicotine dependence; I25.2 Old myocardial infarction; I10 Essential (primary) hypertension
CPT/HCPCS: 93005; 99291; 96375; 96365; 96366; 96368; 36415; 82550; 83690; 85025; 85610; 85730; 80053; 84484; 71045; 93010; J3101; J1644; J2270; J2405; J3490; A9270

== ENCOUNTER 2019-12-16 00:39 | Emergency (ER) | payer MEDICARE, BC ==
--- NOTE | 2019-12-16 00:58 | ER Document Report ---
ED General - General Chief Complaint: Fall Stated Complaint: FALL/NECK/BACK PAIN Time Seen by Provider: 12/16/19 00:47 Primary Care Provider: STEVE DE LA PAZ MD [Primary Care Provider] - Follow up as needed TRAVEL OUTSIDE OF THE [place] IN LAST 30 DAYS: No - HPI Patient complains to provider of: fall Notes: 84 y/o presenting to ED for evaluation after a mechanical fall where she fell while getting her feet under her while trying to get out of bed she hit her left head and has pain in the head and neck she denies hip pain she does report LOC she is unsure of her medications but believes she is on a blood thinner she denies weakness or numbness in extremities she denies chest pain or sob she denies passing out as cause of fall she tells me she has been counseled to use a walker previously - Related Data Allergies/Adverse Reactions: Sulfa (Sulfonamide Antibiotics) Allergy (Severe, Verified 12/04/16 01:05) Anaphylaxis Past Medical History - Social History Smoking Status: Unknown if Ever Smoked Family History: Reviewed & Not Pertinent - Past Medical History Cardiac Medical History: Reports: Hx Coronary Artery Disease, Hx Heart Attack - x2, Hx Hypertension - [facility] Pulmonary Medical History: Reports: Hx Bronchitis Denies: Hx Asthma, Hx COPD, Hx Pneumonia Neurological Medical History: Denies: Hx Cerebrovascular Accident, Hx Seizures Endocrine Medical History: Reports: Hx Hypothyroidism Renal/ Medical History: Denies: Hx Peritoneal Dialysis GI Medical History: Denies: Hx Hepatitis, Hx Hiatal Hernia, Hx Ulcer Musculoskeletal Medical History: Reports Hx Arthritis Infectious Medical History: Denies: Hx Hepatitis Past Surgical History: Reports: Hx Appendectomy, Hx Cholecystectomy, Hx Hysterectomy, Hx Orthopedic Surgery - Back, Hx Tonsillectomy. Denies: Hx Mastectomy, Hx Open Heart Surgery, Hx Pacemaker - Immunizations Hx Diphtheria, Pertussis, Tetanus Vaccination: Yes Hx Pneumococcal Vaccination: 03/18/08 Review of Systems - Review of Systems Constitutional: No symptoms reported EENT: No symptoms reported Cardiovascular: No symptoms reported Respiratory: No symptoms reported Gastrointestinal: No symptoms reported Genitourinary: No symptoms reported Female Genitourinary: No symptoms reported Musculoskeletal: Neck pain Skin: No symptoms reported Hematologic/Lymphatic: No symptoms reported Neurological/Psychological: Headaches Physical Exam - Vital signs Vitals: Temp Pulse Resp BP Pulse Ox 97.5 F 84 15 157/85 H 98 12/16/19 00:47 12/16/19 00:47 12/16/19 00:47 12/16/19 00:47 12/16/19 00:47 Interpretation: Normal - General General appearance: Appears well, Alert - HEENT Head: Normocephalic, Other - swelling and bruising to left forehead Eyes: Normal Pupils: PERRL Neck: Other - c spine tenderness to palpation - Respiratory Respiratory status: No respiratory distress Chest status: Nontender Breath sounds: Normal Chest palpation: Normal - Cardiovascular Rhythm: Regular Heart sounds: Normal auscultation Murmur: No - Abdominal Inspection: Normal Distension: No distension Bowel sounds: Normal Tenderness: Nontender Organomegaly: No organomegaly - Back Back: Normal, Nontender - Extremities General upper extremity: Normal inspection, Nontender, Normal color, Normal ROM, Normal temperature General lower extremity: Normal inspection, Nontender, Normal color, Normal ROM, Normal temperature, Normal weight bearing. No: Bowen's sign - Neurological Neuro grossly intact: Yes Cognition: Normal Orientation: AAOx4 Marshall Coma Scale Eye Opening: Spontaneous Marshall Coma Scale Verbal: Oriented Bettye Coma Scale Motor: Obeys Commands Marshall Coma Scale Total: 15 Speech: Normal Motor strength normal: LUE, RUE, LLE, RLE Sensory: Normal - Psychological Associated symptoms: Normal affect, Normal mood - Skin Skin Temperature: Warm Skin Moisture: Dry Skin Color: Normal Course - Re-evaluation Re-evalutation: 12/16/19 00:57 mechanical fall so will not obtain labs will order ct head/c spine due to trauma and age 0912/16/19 02:54 CT head/ c spine are negative in the ED for acute abnormalities will dc to home w/ return precautions - Vital Signs Vital signs: Temp Pulse Resp BP Pulse Ox 97.5 F 84 15 157/85 H 98 12/16/19 00:47 12/16/19 00:47 12/16/19 00:47 12/16/19 00:47 12/16/19 00:47 - Diagnostic Test Radiology reviewed: Reports reviewed Discharge - Discharge Clinical Impression: Neck pain Fall Qualifiers: Encounter type: initial encounter Qualified Code(s): W19.XXXA - Unspecified fall, initial encounter Traumatic hematoma of forehead Qualifiers: Encounter type: initial encounter Qualified Code(s): S00.83XA - Contusion of other part of head, initial encounter Condition: Stable Disposition: HOME, SELF-CARE Instructions: Head Injury Precautions ([facility]) Additional Instructions: Your head and neck CT scans did not show any type of acute injuries Follow up with primary care provider as an outpatient for ongoing care Apply ice to the area of your forehead that is swollen Return to the ED with worsening symptoms or concerns Referrals: STEVE DE LA PAZ MD [Primary Care Provider] - Follow up as needed
--- NOTE | 2019-12-16 02:50 | RADIOLOGY REPORT (SQ) ---
EXAM DESCRIPTION: CT HEAD WITHOUT IV CONTRAST COMPLETED DATE/TME: 12/16/2019 00:54 CLINICAL HISTORY: head injury COMPARISON: None available TECHNIQUE: Axial CT of the head obtained from the skull apex to the skull base without contrast. FINDINGS: No acute intracranial hemorrhage identified. No mass, mass effect, shift of the midline, abnormal extra-axial fluid collection or CT evidence of acute ischemic change identified. The ventricular system and sulcal spaces are mildly enlarged compatible with mild cerebral atrophy. Scattered areas of hypodensity throughout the supratentorial white matter are nonspecific and may be related to chronic small vessel ischemic change. Focal area of encephalomalacia in the right periventricular white matter may represent a remote lacunar type infarction. The visualized paranasal sinuses and the mastoids are clear. No skull fracture identified. Visualized orbits and globes are unremarkable. Atherosclerotic calcification of the intracranial internal carotid arteries. IMPRESSION: 1. No acute intracranial abnormality by CT criteria. This exam was performed according to our departmental dose-optimization program, which includes automated exposure control, adjustment of the mA and/or kV according to patient size and/or use of iterative reconstruction technique.
--- NOTE | 2019-12-16 02:54 | RADIOLOGY REPORT (SQ) ---
EXAM DESCRIPTION: CT CERVICAL SPINE WITHOUT IV CONTRAST COMPLETED DATE/TME: 12/16/2019 00:54 CLINICAL HISTORY: neck injury COMPARISON: None available TECHNIQUE: Axial CT of the cervical spine obtained without contrast. FINDINGS: Alignment of the cervical spine is maintained without evidence of subluxation. The atlantoaxial, atlantodental, and occipitoatlantal intervals are preserved. No fracture identified. Vertebral body height preserved. Prevertebral soft tissues are unremarkable. Degenerative spurring of the atlantodental articulation. Mild multilevel loss of intervertebral disc height with endplate spondylosis, uncovertebral spurring, and facet arthropathy. Visualized skull base is intact. No fracture of the visualized facial bones. Visualized mastoid air cells and paranasal sinuses are well aerated. Visualized thyroid is unremarkable. No cervical lymphadenopathy. No pneumothorax in the visualized lung apices. Carotid artery atherosclerosis. IMPRESSION: 1. No acute fracture or subluxation of the cervical spine. 2. Multilevel degenerative change of the cervical spine. This exam was performed according to our departmental dose-optimization program, which includes automated exposure control, adjustment of the mA and/or kV according to patient size and/or use of iterative reconstruction technique.
[2019-12-16 04:34] VITALS: BP 166/70
== END 2019-12-16 04:50 | disposition home or self-care (01) ==
LOC: ER 00:39
DX: S00.83XA Contusion of other part of head, initial encounter (principal); S06.9X9A Unspecified intracranial injury with loss of consciousness of unspecified duration, initial encounter; M54.2 Cervicalgia; W06.XXXA Fall from bed, initial encounter; Y93.89 Activity, other specified; Y92.003 Bedroom of unspecified non-institutional (private) residence as the place of occurrence of the external cause; I25.10 Atherosclerotic heart disease of native coronary artery without angina pectoris; I10 Essential (primary) hypertension; I25.2 Old myocardial infarction; Z88.2 Allergy status to sulfonamides
CPT/HCPCS: 70450; 72125; 99284

== ENCOUNTER → 2019-12-21 | Outpatient (CLI) | payer MEDICARE, BC ==
[2019-12-21 17:19] LABS: ABSOLUTE EOSINOPHILS # (AUTO) 0.5 10^3/uL (0.0-0.6); ABSOLUTE LYMPHOCYTES (AUTO) 3.8 10^3/uL (0.5-4.7); ABSOLUTE MONOCYTES (AUTO) 0.9 10^3/uL (0.1-1.4); ABSOLUTE NEUT (AUTO) 9.9 10^3/uL (1.7-8.2); BASOPHILS % (AUTO) 0.2 % (0-2); EOSINOPHILS % (AUTO) 3.5 % (0-6); HEMATOCRIT 38.2 % (36.0-47.0); HEMOGLOBIN 13.2 g/dL (12.0-15.5); LYMPHOCYTES % (AUTO) 24.9 % (13-45); MEAN CORPUSCULAR HEMOGLOBIN 31.9 pg (27.0-33.4); MEAN CORPUSCULAR HGB CONC 34.7 g/dL (32.0-36.0); MEAN CORPUSCULAR VOLUME 92 fl (80-97); PLATELET COUNT 357 10^3/uL (150-450); RED BLOOD COUNT 4.15 10^6/uL (3.72-5.28); RED CELL DISTRIBUTION WIDTH 12.8 % (11.5-14.0); SEGMENTED NEUTROPHILS % (AUTO) 65.4 % (42-78); TOTAL CELLS COUNTED % (AUTO) 100 %; WHITE BLOOD COUNT 15.2 10^3/uL (4.0-10.5)
[2019-12-21 17:34] LABS: ALBUMIN 4.5 g/dL (3.5-5.0); ALKALINE PHOSPHATASE 123 U/L (38-126); ANION GAP 19 (5-19); ASPARTATE AMINO TRANSFERASE 50 U/L (14-36); BILIRUBIN,DIRECT 0.4 mg/dL (0.0-0.4); BILIRUBIN,TOTAL 0.9 mg/dL (0.2-1.3); BLOOD UREA NITROGEN 73 mg/dL (7-20); CALCIUM 8.6 mg/dL (8.4-10.2); CARBON DIOXIDE 23 mmol/L (22-30); CHLORIDE 92 mmol/L (98-107); GLUCOSE 93 mg/dL (75-110); POTASSIUM 3.2 mmol/L (3.6-5.0); TOTAL PROTEIN 7.5 g/dL (6.3-8.2)
== END ==
LOC: OD 15:40
PROVIDERS: ATTEND Internal Medicine
DX: I10 Essential (primary) hypertension (principal); I25.10 Atherosclerotic heart disease of native coronary artery without angina pectoris; E78.00 Pure hypercholesterolemia, unspecified; R19.7 Diarrhea, unspecified; R53.83 Other fatigue
CPT/HCPCS: 36415; 80053; 85025